=== PATIENT | female | born 1990 | race Caucasian/White ===

== ENCOUNTER 2017-10-24 10:21 | Emergency (ER) | payer OTHER ==
[~2017-10-24] VITALS: Wt 67.8 kg
[2017-10-24] MEDS ORDERED: IBUPROFEN 600 MG TAB PO ONE (11:00)
[2017-10-24] MEDS ORDERED: HYDROCODONE/APAP (5/325) TAB PO ONE (11:00)
--- NOTE | 2017-10-24 11:37 | ERD ---
ER Documentation Chief Complaint Chief Complaint left belo breast possible abcess HPI 27-year-old female with history of Down syndrome is accompanied by her mother for evaluation of left-sided breast pain for 2 days. The patient's mother states that she has been complaining of pain for 2 days and has noted some swelling and redness. They state that it is tender to touch and has had a similar presentation in October or November this year. She was treated with antibiotics, and they state that she had a breast ultrasound at the time that was normal. She has not had any fevers or chills, chest pain, shortness breath. ROS All systems reviewed and are negative except as per history of present illness. Medications Home Meds Active Scripts Ibuprofen* (Motrin*) 600 Mg Tab, 600 MG PO Q6, #30 TAB Prov:RUSSELL CORTES PA-C 10/24/17 Sulfamethoxazole/Trimethoprim* (Bactrim Ds* Tablet) 1 Each Tablet, 1 TAB PO BID , #14 TAB Prov:RUSSELL CORTES PA-C 10/24/17 Cephalexin* (Keflex*) 500 Mg Capsule, 500 MG PO QID for 7 Days, CAP Prov:RUSSELL CORTES PA-C 10/24/17 PMhx/Soc History of Surgery: Yes (Heart Surgery) Hx Respiratory Disorders: Yes (Asthma) Hx Alcohol Use: No Hx Substance Use: No Hx Tobacco Use: No Smoking Status: Never smoker Physical Exam Vitals Vital Signs Date Time Temp Pulse Resp B/P Pulse Ox O2 Delivery O2 Flow Rate FiO2 10/24/17 10:27 97.5 98 18 115/76 99 Physical Exam General: Well-developed, well-nourished. The patient appears in no acute distress. HEENT: Head is normocephalic, atraumatic. No scleral icterus. Neck: Supple. Nontender. Lungs: Clear to auscultation. Normal air movement. Breasts: Left breast at approximately 7:00 below the nipple there is a approximately 2.5 cm area of induration, with erythema. It is tender to touch, no streaking. No masses. Heart: Regular rate and rhythm. S1 and S2 are normal. No murmurs, gallops, or rubs. Abdomen: Nondistended. Extremities: No clubbing or cyanosis. Moving extremities x 4. No weakness. Neurologic: Alert and oriented 3. No focal deficits. Normal speech and gait. Skin: Normal turgor. No rash or lesions. Results 24 hrs Current Medications Medications (Trade) Dose Ordered Sig/Rachel Route PRN Reason Start Time Stop Time Status Last Admin Dose Admin Acetaminophen/ Hydrocodone Bitart ([place] (5/325)) 1 tab ONCE ONCE PO 10/24/17 11:00 10/24/17 11:01 DC 10/24/17 11:10 Ibuprofen (Motrin) 600 mg ONCE ONCE PO 10/24/17 11:00 10/24/17 11:01 DC 10/24/17 11:10 Lidocaine (Xylocaine 1% (Mdv) 20 ml) 20 ml ONCE ONCE SC 10/24/17 12:00 10/24/17 12:01 DC DIAGNOSTIC IMAGING REPORT Patient: RENEE DEMPSEY : 1990 Age: 27 Sex: F MR #: [id number] DOS: 10/24/17 1058 Ordering MD: RUSSELL CORTES PA-C Location: [facility] Room/Bed: PROCEDURE: BREAST ULTRASOUND CLINICAL INDICATION: 27 year-old female with left breast pain/erythema at left 7 o'clock. TECHNIQUE: Targeted left breast ultrasound is performed. COMPARISON: None. FINDINGS: There is skin thickening and parenchymal edema at left 7 o'clock. There is an associated 3 X 1 cm subcutaneous abscess at this location. IMPRESSION: Left 7 o'clock mastitis complicated by a 3 X 1 cm subcutaneous abscess. Sonographic follow-up is recommended in 3 weeks after therapy. ACR BIRADS 3 (PROBABLY BENIGN) RPTAT: UU .Homar Heard MD, MD Date Time Electronically viewed and signed by .Homar Heard MD, on 10/24/2017 11:43 .Z/ CC: RUSSELL CORTES PA-C Procedures/MDM Abscess Incision and Drainage with irrigation by me: Patient was verbally consented as well as her mother. Location: Left breast 7:00 Anesthesia: Local 1% Lidocaine Technique: Initially I attempted aspiration with an 18-gauge needle, there is mild amount of pus that could be appreciated, but the entire abscess was not able to be drained. With consent and a made a small 0.5 cm transverse incision, that allowed for purulent drainage. Irrigated. Disrupted loculations w/ instrumentation Packing: None Complications: Neurovascularly intact post procedure Patient's skin symptoms have stabilized while they have been evaluated in the department and are appropriate for outpatient care and work up. Exam and w/u not consistent w/ sepsis, deep space infection, or foreign body. Wound check is advised in 2 days, the patient will be discharged with ibuprofen for pain as well as Keflex and Bactrim. Departure Diagnosis: Primary Impression: Breast abscess Additional Impression: Encounter for incision and drainage procedure Condition: RUSSELL Pritchard PA-C Oct 24, 2017 11:36
--- NOTE | 2017-10-24 11:43 | RADRPT ---
PROCEDURE: BREAST ULTRASOUND CLINICAL INDICATION: 27 year-old female with left breast pain/erythema at left 7 o'clock. TECHNIQUE: Targeted left breast ultrasound is performed. COMPARISON: None. FINDINGS: There is skin thickening and parenchymal edema at left 7 o'clock. There is an associated 3 X 1 cm saleh bcutaneous abscess at this location. IMPRESSION: Left 7 o'clock mastitis complicated by a 3 X 1 cm subcutaneous abscess. Sonographic follow-up is rec ommended in 3 weeks after therapy. ACR BIRADS 3 (PROBABLY BENIGN) RPTAT: UU .Homar Heard MD, Date Time Electronically viewed and signed by .Homar Heard MD, on 10/24/2017 11:43 .Z/
[2017-10-24] MEDS ORDERED: LIDOCAINE 1% (MDV) 20 ML INJ SC ONE (12:00)
[2017-10-24] MEDS ORDERED: IBUP-1542 PO (12:31)
[2017-10-24] MEDS ORDERED: CEPH-443 PO (12:31)
[2017-10-24] MEDS ORDERED: SULF1TAB31 PO (12:31)
== END 2017-10-24 13:08 | disposition home or self-care (01) ==
LOC: FTE 10:21
DX: N61.1 Abscess of the breast and nipple (principal); J45.909 Unspecified asthma, uncomplicated
CPT/HCPCS: 10060; 76642; Z7502; Z7610

== ENCOUNTER 2017-10-26 10:55 | Emergency (ER) | END 2017-10-26 11:40 | disposition home or self-care (01) ==

== ENCOUNTER 2017-11-05 17:04 | Emergency (ER) | END 2017-11-05 18:47 | disposition home or self-care (01) ==